=== PATIENT | male | born 1935 | race Hispanic/Latino ===

== ENCOUNTER 2017-01-18 15:01 | Emergency (ER) | payer MEDICARE ==
--- NOTE | 2017-01-18 15:18 | Emergency Department Report ---
Chief Complaint: Wound/Laceration Stated Complaint: FALL/RT EYEBROW ABRASION/ELBOW Time Seen by Provider: 01/18/17 15:15 - HPI History of Present Illness: patient is a 81 y/o male with h/o CHF and Parkinson's who presents due to facial injury after falling this morning. Patient's states that the patient lost balance while she was trying to help him with is pants. She denies him having any LOC. He denies any chest pain or SOB. - ROS Review of Systems: facial laceration and abrasion - Exam Vital Signs: Vital Signs 01/18/17 15:05 Temperature 97.5 F L Pulse Rate 82 Respiratory 18 Rate Blood Pressure 102/58 O2 Sat by Pulse 97 Oximetry Physical Exam: facial laceration, ecchymosis and abrasion MSE screening note: Focused history and physical exam performed. Due to findings the following was ordered: ED Disposition for MSE Condition: Stable
--- NOTE | 2017-01-18 16:34 | Emergency Department Report ---
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 Patient is accompanied by his at bedside states that while she was assisting her getting dressed earlier today he tripped forward and fell onto her. As per patient there was no loss of consciousness at bedside states that there was no loss of consciousness but he grazed his upper eyebrow region against his glasses which opened an abrasion above his right eyebrow. Patient has visible 1 inch deep abrasion above right eye brow no active bleeding. No reports of loss of consciousness. Patient is awake alert and oriented 3 at bedside appears calm in no distress. Denies any other injuries. Brought into the ED for evaluation for ecchymosis near the right eyebrow status post fall. Patient denies headache, dizziness, blurry vision, chest pain, abdominal pain. Patient is ambulatory but walks slowly due to his Parkinson's disease. Complaint: head injury, fall -: This afternoon Mechanism of Injury: mechanical fall Location: frontal Loss of Consciousness: no Place: home Radiation: none Severity: mild Severity scale (0 -10): 1 Quality: aching Consistency: intermittent Other Injuries: laceration (abrasion above right eyebrow) Context: on Aspirin, on other anticoagulant (eliquis for dvt/pe) Associated Symptoms: denies other symptoms - Related Data Home Medications Medication Instructions Recorded Confirmed Last Taken Apixaban [Eliquis] 5 mg PO DAILY 09/22/16 09/22/16 09/20/16 Aspirin EC [Aspirin Enteric Coated 81 mg PO DAILY 09/22/16 09/22/16 09/20/16 TAB] AtorvaSTATin [Lipitor] 40 mg PO QHS 09/22/16 09/22/16 09/20/16 Carbidopa/Levodopa 25-100 [Sinemet 1 tab PO DAILY 09/22/16 09/22/16 09/20/16 25/100] Cholecalciferol Vit D3 [Vitamin D3] 1,000 unit PO QDAY 09/22/16 09/22/16 Cyanocobalamin (Vitamin B-12) 2,500 mcg PO DAILY 09/22/16 09/22/16 09/20/16 [Vitamin B12] Furosemide [Lasix] 20 mg PO QDAY 09/22/16 09/22/16 09/20/16 Glucosam/Chondr/Collagn/Hyalur 1 each PO BID 09/22/16 09/22/16 09/20/16 [Glucosamine & Chondroitin Cap] Levothyroxine [Synthroid] 75 mcg PO QAM 09/22/16 09/22/16 09/20/16 Potassium Chloride [Klor-Con 10] 20 meq PO DAILY 09/22/16 09/22/16 09/20/16 Previous Rx's Medication Instructions Recorded Last Taken Type Acetaminophen [Acetaminophen TAB] 500 mg PO Q6HR PRN #30 tablet 01/18/17 Unknown Rx Allergies/Adverse reactions: Allergies Allergy/AdvReac Type Severity Reaction Status Date / Time Penicillins Allergy Hives Unverified 09/20/16 12:26 ED Review of Systems ROS: Stated complaint: FALL/RT EYEBROW ABRASION/ELBOW Other details as noted in HPI Constitutional: denies: chills, fever Eyes: eye pain. denies: eye discharge, vision change ENT: denies: ear pain, throat pain Respiratory: denies: cough, shortness of breath, wheezing Cardiovascular: denies: chest pain, palpitations Endocrine: no symptoms reported Gastrointestinal: denies: abdominal pain, nausea, diarrhea Genitourinary: denies: urgency, dysuria Musculoskeletal: denies: back pain, joint swelling, arthralgia Skin: denies: rash, lesions Neurological: denies: headache, weakness, paresthesias Psychiatric: denies: anxiety, depression Hematological/Lymphatic: denies: easy bleeding, easy bruising ED Past Medical Hx - Past Medical History Hx Hypertension: Yes Hx Heart Attack/AMI: Yes Hx Congestive Heart Failure: Yes Hx Arthritis: Yes - Social History Smoking Status: Never Smoker Substance Use Type: None - Medications Home Medications: Home Medications Medication Instructions Recorded Confirmed Last Taken Type Apixaban [Eliquis] 5 mg PO DAILY 09/22/16 09/22/16 09/20/16 History Aspirin EC [Aspirin Enteric Coated 81 mg PO DAILY 09/22/16 09/22/16 09/20/16 History TAB] AtorvaSTATin [Lipitor] 40 mg PO QHS 09/22/16 09/22/16 09/20/16 History Carbidopa/Levodopa 25-100 [Sinemet 1 tab PO DAILY 09/22/16 09/22/16 09/20/16 History 25/100] Cholecalciferol Vit D3 [Vitamin D3] 1,000 unit PO QDAY 09/22/16 09/22/16 History Cyanocobalamin (Vitamin B-12) 2,500 mcg PO DAILY 09/22/16 09/22/16 09/20/16 History [Vitamin B12] Furosemide [Lasix] 20 mg PO QDAY 09/22/16 09/22/16 09/20/16 History Glucosam/Chondr/Collagn/Hyalur 1 each PO BID 09/22/16 09/22/16 09/20/16 History [Glucosamine & Chondroitin Cap] Levothyroxine [Synthroid] 75 mcg PO QAM 09/22/16 09/22/16 09/20/16 History Potassium Chloride [Klor-Con 10] 20 meq PO DAILY 09/22/16 09/22/16 09/20/16 History Acetaminophen [Acetaminophen TAB] 500 mg PO Q6HR PRN #30 tablet 01/18/17 Unknown Rx ED Physical Exam - General Limitations: No Limitations General appearance: alert, in no apparent distress - Expanded Head Exam Expanded Head exam: Present: abrasion (above right eyebrow) 1 - ecchymosis right eyebrow w/ 2cm horizontal abrasion above rigth eyebrow - Eye Eye exam: Present: normal appearance, PERRL, EOMI - ENT ENT exam: Present: mucous membranes moist - Neck Neck exam: Present: normal inspection - Respiratory Respiratory exam: Present: normal lung sounds bilaterally. Absent: respiratory distress - Cardiovascular Cardiovascular Exam: Present: regular rate, normal rhythm. Absent: systolic murmur, diastolic murmur, rubs, gallop - GI/Abdominal GI/Abdominal exam: Present: soft, normal bowel sounds - Rectal Rectal exam: Present: deferred - Extremities Exam Extremities exam: Present: normal inspection - Back Exam Back exam: Present: normal inspection - Neurological Exam Neurological exam: Present: alert, oriented X3, CN II-XII intact, normal gait - Psychiatric Psychiatric exam: Present: normal affect, normal mood - Skin Skin exam: Present: warm, dry, intact, normal color. Absent: rash ED Course Vital Signs 01/18/17 15:05 Temperature 97.5 F L Pulse Rate 82 Respiratory 18 Rate Blood Pressure 102/58 O2 Sat by Pulse 97 Oximetry - Medical Decision Making A/P: Minor head injury, abrasion 1-tetanus updated today 2-Dermabond and Steri-Strips to abrasion 3-CT head and C-spine show no acute fracture no ICH 4-follow up with primary doctor . Post concussion precautions given to patient' s at bedside. I advised patient's to return him to the ED for reevaluation for any signs of confusion lethargy or abnormal behavior beyond his baseline behavior. pts stated she understood my instructions clearly. - NEXUS Criteria Focal neurological deficit present: No Midline spinal tenderness present: No Altered level of consciousness: No Intoxication present: No Distracting injury present: No NEXUS results: C-Spine can be cleared clinically by these results. Imaging is not required. Critical care attestation.: If time is entered above; I have spent that time in minutes in the direct care of this critically ill patient, excluding procedure time. ED Disposition Clinical Impression: Minor head injury Qualifiers: Encounter type: initial encounter Qualified Code(s): S00.90XA - Unspecified superficial injury of unspecified part of head, initial encounter Disposition: TO HOME OR SELFCARE Is pt being admited?: No Does the pt Need Aspirin: No Condition: Stable Instructions: Minor Head Injury (ED), Abrasion (ED), Post Concussion Syndrome ( ED) Prescriptions: Acetaminophen [Acetaminophen TAB] 500 mg PO Q6HR PRN #30 tablet PRN Reason: Pain Time of Disposition: 18:26
[2017-01-18] MEDS ORDERED: BOOSTRIX IM ONE (16:49)
--- NOTE | 2017-01-18 17:40 | Cat Scan Report ---
FINAL REPORT EXAM: CT HEAD/BRAIN WO CON HISTORY: head trauma on AC TECHNIQUE: CT examination of the head without IV contrast PRIORS: None. FINDINGS: Oblique patient position limits the examination. Nonspecific complete opacification of the left frontal sinus and partial opacification of left ethmoid sinus. Slight mucosal thickening posterior right ethmoid sinus. The other included paranasal sinuses are clear as are the middle ear cavities. Partial left and complete right nonspecific opacification of both mastoid air cells. No acute air-fluid level visualized in the included air-filled sinuses. Bone windows demonstrate no acute fracture. There is ventricular and sulcal prominence compatible with global cerebrocortical atrophy. Low attenuation regions in the cerebral white matter, while nonspecific, are present and usually attributed to chronic ischemic gliosis. It can occur secondary to the normal aging process, hypertension, or arterial sclerotic vascular disease. The differential includes demyelination in the appropriate clinical setting. The brain contains no mass, mass effect, hemorrhage, or acute infarct. There is no extra-axial intracranial bleed or brain bleed. There is no midline shift. IMPRESSION: No acute CVA, intracranial bleed, or brain mass Multifocal paranasal sinus and mastoid air cell disease without definite acute fluid level
--- NOTE | 2017-01-18 18:11 | Cat Scan Report ---
FINAL REPORT EXAM: CT CERVICAL SPINE WO CON HISTORY: head trauma elderly , AMS, parkinsons TECHNIQUE: CT examination of the cervical spine without IV contrast PRIORS: None. FINDINGS: Prevertebral soft tissues are without swelling. No evidence of cervical fracture or vertebral compression. Multilevel degenerative changes are present at the vertebral endplates, facet joints, and uncinate joints. Anterolisthesis: C6-7 slight, C7-T1 slight, T2-3 trace Retrolisthesis: None. Disc narrowing: C2-3 moderate, C3-4 severe, C4-5 severe, C5-6 severe, C6-7 severe, T1-2 moderate Vertebral endplate, uncinate, and facet degenerative hypertrophic change is associated with right C5-6, right C6-7, right T1-2, left C5-6, left C6-7 osseous neural foraminal stenosis. Nonspecific cervical spine curvature with mid right apex. 6.3 mm nonspecific ground-glass nodular opacity in left lung apex. IMPRESSION: No acute skeletal pathology in the cervical spine Ground-glass left lung apex nodular opacity. Recommend followup chest CT to fully evaluate both lungs Multilevel degenerative change, anterolisthesis, disc narrowing, and bilateral neural foraminal stenosis Nonspecific cervical spine curvature with mid right apex. This may be related to degenerative changes and/or spasm
[2017-01-18] MEDS ORDERED: TYLENOL PO ONE (18:26)
[2017-01-18 18:48] VITALS: BP 112/67
== END 2017-01-18 18:48 | disposition home or self-care (01) ==
LOC: ED 15:01
DX: S00.81XA Abrasion of other part of head, initial encounter (principal); I25.2 Old myocardial infarction; I10 Essential (primary) hypertension; Z79.82 Long term (current) use of aspirin; Z88.0 Allergy status to penicillin
CPT/HCPCS: 70450; 72125; 90471; 90715